=== PATIENT | female | born 1980 | race Caucasian/White ===

== ENCOUNTER → 2017-09-18 15:47 | Outpatient (CLI) | payer MEDICAID, SELFPAY ==
[2017-09-18 16:22] LABS: Hematocrit 35.9 % (37-47); Hemoglobin 11.8 g/dl (12.0-15.0); Mean Corp Hgb Conc 32.9 g/gl (32-36); Mean Corpuscular Hgb 31.1 pg (27.0-32.0); Mean Corpuscular Volume 94.7 fL (81-99); Platelet Count 259 K/mm3 (150-450); RBC Distribution Width CV 13.8 % (11.6-14.6); Red Blood Count 3.79 M/mm3 (4.2-5.4)
[2017-09-18 16:25] LABS: Glucose Challenge Gest 1H 50g 120 mg/dL (70-140); Scan Indicated on CBC? Y/N NO
== END ==
PROVIDERS: Visit Provider Obstetrics & Gynecology
DX: Z34.83 Encounter for supervision of other normal pregnancy, third trimester (principal)
CPT/HCPCS: 82950; 85027

== ENCOUNTER → 2017-11-06 10:27 | Outpatient (CLI) | payer MEDICAID, SELFPAY ==
[2017-11-06 12:32] LABS: Group B Strep DNA By PCR Negative (Negative); Internal Control PASS; Probe Check PASS; Specimen Processing Control PASS
== END ==
PROVIDERS: Visit Provider Obstetrics & Gynecology
DX: Z36.85 Encounter for antenatal screening for Streptococcus B (principal)
CPT/HCPCS: 87081; 87653

== ENCOUNTER 2017-11-10 04:30 | Inpatient (IN) | payer MEDICAID, SELFPAY ==
[2017-11-10] VITALS (24 sets, daily range): BP systolic 98–137; BP diastolic 48–73; PULSE 10–125; RESP 14–19; TEMP 36.1–38.1; O2SAT 95–100; BMI 30.9
[2017-11-10] MEDS: Lactated Ringers 1,000 ML 999 ML IV (05:00)
[2017-11-10 05:16] LABS: Absolute Lymphocyte Count 1.53 X10^3/ul (0.83-4.51); Basophil# 0.02 X10^3/uL; Basophil% 0.2 % (0-1); Eosinophil# 0.11 X10^3/uL; Eosinophils% 1.1 % (0-5); Hematocrit 41.1 % (37-47); Hemoglobin 13.6 g/dl (12.0-15.0); Lymphocyte # 1.53 X10^3/ul (4.0); Lymphocyte % 14.7 % (19-41); Mean Corp Hgb Conc 33.1 g/gl (32-36); Mean Corpuscular Hgb 31.1 pg (27.0-32.0); Mean Corpuscular Volume 94.1 fL (81-99); Mean Platelet Vol. 10.3 fl (6.2-12.0); Monocyte# 0.66 X10^3/uL; Monocyte% 6.3 % (0-10); Neutrophil # 8.01 X10^3/uL (2.7-7.7); Neutrophil % 76.7 % (47-70); Platelet Count 244 K/mm3 (150-450); RBC Distribution Width CV 13.9 % (11.6-14.6); RBC Distribution Width SD 45.8 fl (35.1-43.9); Red Blood Count 4.37 M/mm3 (4.2-5.4); White Blood Count 10.4 K/mm3 (4.4-11.0)
[2017-11-10 05:18] LABS: POSITIVE COUNT NO; POSITIVE DIFFERENTIAL NO; POSITIVE MORPHOLOGY NO
[2017-11-10] MEDS: Sodium Citrate/Citric Acid 30 ML UDC PO (05:29)
--- NOTE | 2017-11-10 05:41 | OP.PCM_ITS ---
Operative Report Date of Procedure: 11/10/17 Surgeon: Ellis Michele MD, FACOG Glass Frame Fitter: DYLAN Gloria Anesthesia: Logan Preciado CRNA Anesthesia: Spinal with Duramorph Pre-op Diagnosis: - -Prior Section In Labor at 35+ Weeks Post-Op Diagnosis: - -Prior Section In Labor at 35+ Weeks; Adhesions Procedure: Repeat Low Transverse Cervical Caesarean Section; Lysis of Adhesions Findings: Viable male infant with Apgars of 8/9 in occiput anterior presentation with clear amniotic fluid and normal three-vessel placenta. Adhesions of the uterus to the anterior abdominal wall as well as omentum to the anterior abdominal wall. Indication: This is a 37-year-old who presents for her second at 35+ weeks gestation. She presented in labor this evening with her cervix 5-6 cm 90 % effaced and -2 station. care has otherwise been uneventful. The patient has been counseled regarding the risk and indications of this procedure including the possibility of bleeding infection and injury to surrounding structures such as bowel bladder. All questions were answered. Procedure: Patient was taken to the operating room where after spinal anesthesia was placed, the patient was prepped and draped in usual sterile fashion and a Monroe catheter was placed. The abdomen was entered through the patient's prior Pfannenstiel incision and peritoneum was entered bluntly. After developing a bladder flap on the lower uterine segment a low transverse incision was made on the uterus and head was easily delivered onto the operative field the nose mouth and oropharynx were bulb suctioned. Subsequently a viable male was born with Apgars of/9. The infant was noted to cry move all extremities vigorously on the operative field. The umbilical cord was doubly clamped and ligated and handed to the nursery personnel who were present for the delivery. Placenta was delivered and noted to be 3 vessels and normal. Uterus was exteriorized and remaining placental tissue was removed. Multiple adhesions were taken down with sharp and blunt dissection. The uterus was then closed in 2 layers first with running locked 0 Vicryl suture followed by a second imbricating layer with 0 Vicryl suture. 0 Vicryl suture was then used in a horizontal mattress interrupted fashion to affect final hemostasis of the uterine incision line. Normal fallopian tubes and ovaries were visualized and the uterus was returned to the pelvis. Hemostasis was noted and rectus abdominis muscles were reapproximated in the midline with interrupted Number 0 Vicryl suture in a horizontal mattress fashion. Fascia was closed with running Number 1 PDS Strata fix suture. Subcutaneous tissue was irrigated with copious amouts of saline solution and then closed with running 3-0 Vicryl suture. Skin was closed with 4-0 monocryl suture in a running subcuticular fashion. Steri strips, telfa, and tape were placed across the incision. The patient tolerated the procedure well and was taken to the recovery room in satisfactory condition. Sponge, needle, and instrument counts were all reportedly correct. EBL was 500 cc. Ancef 2 gms IV was given prior to the procedure. Spicemen to Pathology: None Complications: None
--- NOTE | 2017-11-10 05:42 | DCINST_ITS ---
Discharge Diet: No Restrictions Discharge Activity: May not drive while taking narcotic pain medications., May Shower, May Take a Tub Bath May resume sexual activity in: 4-6 weeks Lifting Restrictions: 20 pounds Additional Activity Instructions:: Nothing in the vagina for 4-6 weeks. You may return to work/school in 6 weeks. Call your doctor if your incision/area has: Continuous Slow Oozing, Sudden Increased Bleeding, Increased Pain/ Swelling, Increased Redness, Foul Smelling Discharge Call your doctor if you observe: Fever of 101 or Higher, Inability to urinate, Inability to have a bowel movement, Using more than one pad per hour Additional Instructions: If you experience any of the following, contact your healthcare provider. * Bleeding that soaks a pad every hour for 2 hours * Unrelieved incision or abdominal pain * Swelling, redness, discharge or bleeding from your incision or episiotomy site * Your incision begins to separate * Problems urinating (including inability to urinate or burning while urinating) . * Visual changes * Severe headache * Flu-like symptoms * Pain or redness in one of both of your breasts * Pain, warmth, tenderness or swelling in your legs, especially the calf area * Frequent nausea and vomiting * Symptoms of depression or anxiety If you experience any of the following, call 911 or go to the nearest Emergency Room. * Chest pain * Problems breathing * Seizure activity * Partial or complete paralysis of a body part, slurred speech, weakness or drooping of the face, or a sudden inability to walk or hold your balance Allergies/Adverse Reactions: Allergies No Known Allergies Allergy (Verified 11/10/17 05:26) Medications to take at Discharge Docusate Sodium [Colace] 100 mg PO BID PRN PRN #60 cap 11/10/17 Oxycodone [Oxyir] 5 mg PO Q6H PRN PRN 7 Days #20 tab 11/10/17 The following prescriptions were given: Oxycodone [Oxyir] 5 mg PO Q6H PRN PRN 7 Days #20 tab PRN Reason: Severe Pain (-04/21) Docusate Sodium [Colace] 100 mg PO BID PRN PRN #60 cap PRN Reason: Constipation Follow-Up: Call to make an appointment with your doctor for an incision check in 1-2 weeks. You will also need a 6 week post- follow up appointment. Please Follow Up With: Rosa Dickens MD - [phone] When: Call to make an appointment for an incision check in 2 weeks. Primary Care Physician: Tiffany Niño DO [Primary Care Provider] -
[2017-11-10] MEDS: Cefazolin 2 GM in 0.9% Normal Saline 100 ML IV (05:45)
[2017-11-10] MEDS: Oxytocin 30 units/NS 500 ml 30 UNITS/500 ML IV.SOLN 167 UNITS IV (05:55)
[2017-11-10] MEDS: Lactated Ringers 1,000 ML 100 ML IV ×2 (06:45→15:42)
[2017-11-10] MEDS: proMETHazine 25 MG/ML Syringe 12.5 MG IV (08:12)
[2017-11-10] MEDS: 0.9% Saline Lock 10 ML Syringe IV ×2 (08:12→12:18)
[2017-11-10] MEDS: Ketorolac 30 MG/ML Syringe IV ×3 (12:18→23:43)
[2017-11-10] MEDS: Cefazolin 1 GM/50 ML BAG IV ×2 (14:13→21:35)
--- NOTE | 2017-11-10 17:52 | NURSING ---
pts pulse running 120's fundus firm lochia small; pt oob up to chair pt tolerated well no dizziness; pt felt warm to touch Temp taken 100.6; dr Dickens called and made aware of Temp; orders received;
[2017-11-10 18:42] LABS: Absolute Lymphocyte Count 1.43 X10^3/ul (0.83-4.51); Absolute Neutrophil Count 10.1 X10^3/uL (2.0-7.7); Basophil# 0.01 X10^3/uL; Basophil% 0.1 % (0-1); Eosinophil# 0.04 X10^3/uL; Eosinophils% 0.3 % (0-5); Hematocrit 30.2 % (37-47); Hemoglobin 9.8 g/dl (12.0-15.0); Lymphocyte # 1.43 X10^3/ul (4.0); Lymphocyte % 11.5 % (19-41); Mean Corp Hgb Conc 32.5 g/gl (32-36); Mean Corpuscular Hgb 31.6 pg (27.0-32.0); Mean Corpuscular Volume 97.4 fL (81-99); Monocyte# 0.73 X10^3/uL; Monocyte% 5.9 % (0-10); Neutrophil # 10.14 X10^3/uL (2.7-7.7); Neutrophil % 81.6 % (47-70); Platelet Count 219 K/mm3 (150-450); RBC Distribution Width SD 47.2 fl (35.1-43.9); White Blood Count 12.4 K/mm3 (4.4-11.0)
[2017-11-10 18:44] LABS: POSITIVE COUNT NO; POSITIVE DIFFERENTIAL NO; POSITIVE MORPHOLOGY NO
[2017-11-10 19:03] LABS: Bacteria 0 SEEN /hpf (None Seen); Mucous, Urine 0 SEEN /hpf (<or=2+); Squamous Epithelial Cells - UA 0 SEEN /hpf (5-10)
[2017-11-10 19:13] LABS: Color, Urine Yellow (Yellow); Glucose, Dipstick 50 mg/dl (Normal); Ketone-Dipstick 5 mg/dl (Negative); Leukocyte Esterase-Dipstick 100 /ul (Negative); Nitrite-Dipstick Negative (Negative); Occult Blood-Urine 25 /ul (Negative); Protein-Dipstick Negative (Negative); Specific Gravity, Urine 1.015 (1.002-1.030); Urine Bilirubin Dipstick Negative (Negative); Urine Clarity Clear (Clear); Urine Urobilinogen Normal (Normal)
--- NOTE | 2017-11-10 19:20 | RAD_ITS ---
STUDY: X-RAY CHEST REASON FOR EXAM: Female, 37 years old. Fever, history TECHNIQUE: Frontal and lateral views of the chest. COMPARISON: 10/03/2009. FINDINGS: The lungs are clear and expanded. There is no demonstrated pleural abnormality. Normal size heart. Normal mediastinum and charla. Normal visualized pulmonary arteries. Normal visualized aortic arch and descending thoracic aorta. Normal visualized thoracic spine. Normal visualized ribs, clavicles, and shoulders. There is no demonstrated abnormality of the visualized soft tissue structures of the upper abdomen. RAD/Chest PA and Lateral IMPRESSION: No acute cardiopulmonary disease. Electronically Signed: Johann Taylor DO at 19:42 EDT , Service support ,
[2017-11-10 19:33] LABS: Calcium Oxalate Crystals Ur RARE /hpf (<or=2+); Red Blood Cells-Urine 0-5 SEEN /hpf (0-5); White Blood Cells 0-5 SEEN /hpf (0-5)
--- NOTE | 2017-11-10 20:00 | PN_ITS ---
Subjective: Called by RN Day of Delivery d/t pt with pulse slowing increasing after repeat C/S earlier today. States patient is tolerating out of bed well. Urine output good. Vaginal bleeding minimal and pain control adequate. Tm 100.6 at approx 17:45 pm - Physical Exam Vital Signs Temp Pulse Resp BP Pulse Ox 100.6 F H 125 H 18 110/62 99 11/10/17 17:45 11/10/17 17:45 11/10/17 17:45 11/10/17 15:20 11/10/17 17:45 Oxygen Delivery Method Room Air Weight: 81.647 kg Body Mass Index (BMI) 30.9 Intake and Output for Last 24 Hours 11/08/17 11/09/17 11/10/17 23:59 23:59 23:59 Intake Total 2866 / 2866 Output Total 400 / 400 Balance 2466 / 2466 Laboratory Tests Past 24 Hrs 11/10/17 11/10/17 11/10/17 05:00 05:00 18:25 WBC 10.4 12.4 H RBC 4.37 3.10 L Hgb 13.6 9.8 L Hct 41.1 30.2 L MCV 94.1 97.4 MCH 31.1 31.6 MCHC 33.1 32.5 RDW 13.9 14.0 RDW Differential 45.8 H 47.2 H Plt Count 244 219 MPV 10.3 10.0 Immature Gran % (Auto) 1.000 H 0.600 Neut % (Auto) 76.7 H 81.6 H Lymph % (Auto) 14.7 L 11.5 L [place] % (Auto) 6.3 5.9 Eos % (Auto) 1.1 0.3 Baso % (Auto) 0.2 0.1 Absolute Neuts (auto) 8.0 H 10.1 H Absolute Lymphs (auto) 1.53 1.43 Total Counted Not Reportable Not Reportable Urine Color Urine Clarity Urine pH Ur Specific [place] Urine Protein Urine Glucose (UA) Urine Ketones Urine Occult Blood Urine Nitrite Urine Bilirubin Urine Urobilinogen Ur Leukocyte Esterase Urine RBC Urine WBC Ur Squamous Epith Cells Calcium Oxalate Crystal Urine Bacteria Urine Mucus Blood Type O POSITIVE Antibody Screen NEGATIVE 11/10/17 18:55 WBC RBC Hgb Hct MCV MCH MCHC RDW RDW Differential Plt Count MPV Immature Gran % (Auto) Neut % (Auto) Lymph % (Auto) [place] % (Auto) Eos % (Auto) Baso % (Auto) Absolute Neuts (auto) Absolute Lymphs (auto) Total Counted Urine Color Yellow Urine Clarity Clear Urine pH 6.0 Ur Specific [place] 1.015 Urine Protein Negative Urine Glucose (UA) 50 H Urine Ketones 5 H Urine Occult Blood 25 H Urine Nitrite Negative Urine Bilirubin Negative Urine Urobilinogen Normal Ur Leukocyte Esterase 100 H Urine RBC 0-5 SEEN Urine WBC 0-5 SEEN Ur Squamous Epith Cells 0 SEEN Calcium Oxalate Crystal RARE Urine Bacteria 0 SEEN Urine Mucus 0 SEEN Blood Type Antibody Screen Medical Necessity - Tobacco Use Smoking Status: Never smoker Assessment/Plan Temp POD#0 s/p repeat C/s presented labor. UA negative for bacteria. CXR NAD CBC with slight inc WBCs Acute blood loss anemia. Hgb as anticipated postop. Repeat CBC in AM 11/11/17 Continue planned prophylactic antibiotics Cough and deep breathe, IS while awake Observe for recurrent temp.
[2017-11-11 02:00] VITALS: PULSE 114; RESP 16; O2SAT 97
[2017-11-11] MEDS: Lactated Ringers 1,000 ML 100 ML IV (02:26)
[2017-11-11 04:15] VITALS: BP 96/48; PULSE 106; RESP 18; TEMP 36.6; O2SAT 98
[2017-11-11 05:22] VITALS: PULSE 100; RESP 18; O2SAT 99
[2017-11-11 05:30] LABS: Hematocrit 28.3 % (37-47); Hemoglobin 9.3 g/dl (12.0-15.0); Mean Corp Hgb Conc 32.9 g/gl (32-36); Mean Corpuscular Hgb 31.4 pg (27.0-32.0); Mean Corpuscular Volume 95.6 fL (81-99); Mean Platelet Vol. 9.8 fl (6.2-12.0); Platelet Count 209 K/mm3 (150-450); RBC Distribution Width CV 14.4 % (11.6-14.6); Red Blood Count 2.96 M/mm3 (4.2-5.4); White Blood Count 9.8 K/mm3 (4.4-11.0)
[2017-11-11] MEDS: Ketorolac 30 MG/ML Syringe IV ×4 (05:40→23:37)
[2017-11-11 05:53] LABS: Scan Indicated on CBC? Y/N NO
--- NOTE | 2017-11-11 06:56 | PCM.PN.OB ---
Subjective: POD#1 Repeat C/S presented in labor, Doing well. Pain control adequate but put abdominal binder on earlier in night again due to inc abdominal pain. Baby doing well. - Physical Exam General: Alert, Oriented x3, Cooperative, No apparent distress HEENT: Atraumatic Neck: Supple Abdomen: Soft - Abdominal binder in place. Fundus firm tender c/w postop status at 1-2 cm inferior to umbilicus. Softly distended abdomen , tympanitic Skin: Incision - CDI. Telfa and tape dressing not removed at this time Neurological: Cranial nerves II-XII grossly intact Psych/Mental Status: Normal Affect Vital Signs Temp Pulse Resp BP Pulse Ox 97.9 F 100 18 96/48 L 99 11/11/17 04:15 11/11/17 05:22 11/11/17 05:22 11/11/17 04:15 11/11/17 05:22 Oxygen Delivery Method Room Air Weight: 81.647 kg Body Mass Index (BMI) 30.9 Intake and Output for Last 24 Hours 11/09/17 11/10/17 11/11/17 23:59 23:59 23:59 Intake Total 3646 / 3646 1113 / 1113 Output Total 1000 / 1000 2600 / 2600 Balance 2646 / 2646 -1487 / -1487 Laboratory Tests Past 24 Hrs 11/10/17 11/10/17 11/11/17 18:25 18:55 05:15 WBC 12.4 H 9.8 RBC 3.10 L 2.96 L Hgb 9.8 L 9.3 L Hct 30.2 L 28.3 L MCV 97.4 95.6 MCH 31.6 31.4 MCHC 32.5 32.9 RDW 14.0 14.4 RDW Differential 47.2 H 50.0 H Plt Count 219 209 MPV 10.0 9.8 Immature Gran % (Auto) 0.600 Neut % (Auto) 81.6 H Lymph % (Auto) 11.5 L [place] % (Auto) 5.9 Eos % (Auto) 0.3 Baso % (Auto) 0.1 Absolute Neuts (auto) 10.1 H Absolute Lymphs (auto) 1.43 Total Counted Not Reportable Urine Color Yellow Urine Clarity Clear Urine pH 6.0 Ur Specific [place] 1.015 Urine Protein Negative Urine Glucose (UA) 50 H Urine Ketones 5 H Urine Occult Blood 25 H Urine Nitrite Negative Urine Bilirubin Negative Urine Urobilinogen Normal Ur Leukocyte Esterase 100 H Urine RBC 0-5 SEEN Urine WBC 0-5 SEEN Ur Squamous Epith Cells 0 SEEN Calcium Oxalate Crystal RARE Urine Bacteria 0 SEEN Urine Mucus 0 SEEN Medical Necessity - Tobacco Use Smoking Status: Never smoker Assessment/Plan POD#1 s/p repeat C/s presented labor. Stable. No further temps. CBC with normal WBCs. Hgb stable at 9.3 g/dl. Inc diet and activity as tolerated. D/C aldrich for voiding trial. S/L IV Continue toradol today Continue care
[2017-11-11 08:40] VITALS: BP 98/53; PULSE 97; RESP 20; TEMP 36.8; O2SAT 98
[2017-11-11] MEDS: Senna/Docusate Sodium 1 Tablet PO (10:17)
[2017-11-11] MEDS: oxyCODONE 5 MG Tablet PO ×2 (10:44→17:13)
[2017-11-11] MEDS: 0.9% Saline Lock 10 ML Syringe IV ×2 (12:12→23:37)
[2017-11-11 14:00] VITALS: BP 104/57; PULSE 114; RESP 20; TEMP 36.8; O2SAT 96
[2017-11-11 19:54] VITALS: BP 106/62; PULSE 115; RESP 18; TEMP 37.2; O2SAT 97
[2017-11-12 01:20] VITALS: BP 103/61; PULSE 107; RESP 18; TEMP 37.3; O2SAT 97
[2017-11-12] MEDS: 0.9% Saline Lock 10 ML Syringe IV (05:06)
[2017-11-12] MEDS: Ketorolac 30 MG/ML Syringe IV (05:06)
--- NOTE | 2017-11-12 08:24 | PCM.PN.OB ---
Subjective: Doing well. No specific complaints. Pain reasonably controlled. Objective: Afeb VSS - Physical Exam General: Alert, Oriented x3, Cooperative, No apparent distress Lungs: Clear to auscultation, Normal air movement Cardiovascular: Regular rate, Regular Rhythm Abdomen: Soft, Non Tender, Non-Distended, - - Fundus firm nontender. Incision dressing dry Skin: No rashes Neurological: Neuro grossly intact Psych/Mental Status: Normal Affect Comment: Lochia light Vital Signs Temp Pulse Resp BP Pulse Ox 99.1 F 107 H 18 103/61 97 11/12/17 01:20 11/12/17 01:20 11/12/17 01:20 11/12/17 01:20 11/12/17 01:20 Oxygen Delivery Method Room Air Weight: 180 lb Body Mass Index (BMI) 30.9 Intake and Output for Last 24 Hours 11/10/17 11/11/17 11/12/17 23:59 23:59 23:59 Intake Total 3646 / 3646 1113 / 1113 Output Total 1000 / 1000 4000 / 4000 Balance 2646 / 2646 -2887 / -2887 Medical Necessity - Tobacco Use Smoking Status: Never smoker Assessment/Plan Doing well on POD#2. Continue routine PO care. Is considering discharge. If baby able to be discharge will send home. Discharge instructions given.
[2017-11-12 08:37] VITALS: BP 109/63; PULSE 101; RESP 16; TEMP 36.7; O2SAT 97
[2017-11-12] MEDS: Acetaminophen 500 MG Tablet 1000 MG PO (08:46)
[2017-11-12 12:00] VITALS: PULSE 72; RESP 16; TEMP 36.6
[2017-11-12] MEDS: Ibuprofen 600 MG Tablet PO (12:16)
[2017-11-12 14:20] VITALS: BP 100/50
== END 2017-11-12 14:30 | disposition home or self-care (01) | DRG 370 ==
PROVIDERS: Obstetrics & Gynecology; Admitting Provider Obstetrics & Gynecology; Family Provider Family Medicine; PCP Family Medicine; Visit Provider Obstetrics & Gynecology
DX: O34.211 Maternal care for low transverse scar from previous cesarean delivery (principal); O99.02 Anemia complicating childbirth; D62 Acute posthemorrhagic anemia; N73.6 Female pelvic peritoneal adhesions (postinfective); O99.89 Other specified diseases and conditions complicating pregnancy, childbirth and the puerperium; O60.14X0 Preterm labor third trimester with preterm delivery third trimester, not applicable or unspecified; Z3A.35 35 weeks gestation of pregnancy; Z37.0 Single live birth
CPT/HCPCS: 59025; 59050; 71046; 81001; 85025; 85027; 86850; 86900; 87040; 99218; J7120; A4216; G0378; J2405

== ENCOUNTER → 2019-04-22 15:04 | Outpatient (CLI) | payer OTHER, MEDICAID, SELFPAY ==
[2017-11-10 05:16] VITALS: BMI 30.9
[2019-04-22 17:34] LABS: Chlamydia Trachomatis by PCR Negative (Negative); Neisserai gonorrhoeae by PCR Negative (Negative); Probe Check PASS; Sample Adequacy Control PASS; Specimen Processing Control PASS
== END ==
PROVIDERS: Visit Provider Obstetrics & Gynecology
DX: Z12.4 Encounter for screening for malignant neoplasm of cervix (principal); Z11.3 Encounter for screening for infections with a predominantly sexual mode of transmission
CPT/HCPCS: 87491; 87591

== ENCOUNTER → 2020-03-15 14:28 | Outpatient (CLI) | payer OTHER, MEDICAID, SELFPAY ==
[2020-03-15 14:41] LABS: Mucous, Urine 0 SEEN /hpf (<or=2+)
[2020-03-15 15:54] LABS: Color, Urine Yellow (Yellow); Glucose, Dipstick Normal (Normal); Ketone-Dipstick Negative (Negative); Leukocyte Esterase-Dipstick 25 /ul (Negative); Nitrite-Dipstick Negative (Negative); Occult Blood-Urine 25 /ul (Negative); Protein-Dipstick Negative (Negative); Urine Bilirubin Dipstick Negative (Negative); Urine Clarity Clear (Clear); Urine Urobilinogen Normal (Normal)
[2020-03-15 16:05] LABS: Bacteria RARE /hpf (None Seen); Red Blood Cells-Urine 0-5 SEEN /hpf (0-5); Squamous Epithelial Cells - UA 0-5 SEEN /hpf (5-10); White Blood Cells 0-5 SEEN /hpf (0-5)
[2020-03-19 03:07] LABS: Chlamydia By Nucleic Acid AMP Negative (Negative)
[2020-03-19 07:53] LABS: Gonococcus By Nucleic Acid AMP Negative (Negative)
== END ==
PROVIDERS: Visit Provider Student in an Organized Health Care Education/Training Program
DX: Z11.3 Encounter for screening for infections with a predominantly sexual mode of transmission (principal); R30.0 Dysuria
CPT/HCPCS: 81001; 87086; 87491; 87591